=== PATIENT | female | born 1980 | race African-American/Black ===

== ENCOUNTER 2017-08-01 18:25 | Emergency (ER) | payer MEDICARE, MEDICAID ==
[~2017-08-01] VITALS: Ht 167.6 cm; Wt 68.5 kg
[2017-08-01 19:46] LABS: CLARITY URINE CLEAR (CLEAR); COLOR URINE YELLOW (YELLOW); KETONES URINE NEGATIVE (NEGATIVE); LEUKOCYTE ESTERASE URINE 1+ (NEGATIVE); NITRITE URINE NEGATIVE (NEGATIVE); OCCULT BLOOD URINE 2+ (NEGATIVE); PROTEIN URINE NEGATIVE (NEGATIVE); SPECIFIC GRAVITY URINE 1.015 (1.005-1.030)
[2017-08-01 20:53] LABS: CHLORIDE 108 mEq/L (98-107)
[2017-08-01 20:55] LABS: BASOPHILS % 1.1 % (0.0-2.0); EOSINOPHILS % 3.2 % (0.0-5.0); HEMATOCRIT. 35.2 % (36.0-48.0); LYMPHOCYTES % 32.3 % (20.0-50.0); MEAN CORPUSCULAR HEMOGLOBIN 29.4 pg (28.0-32.0); MEAN CORPUSCULAR VOLUME 86.1 fL (81.0-99.0); MEAN PLATELET VOLUME 9.3 fl (7.4-10.4); MONOCYTES % 7.3 % (2.0-8.0); NEUTROPHILS % 56.1 % (40.0-76.0); PLATELET 192 x1000/uL (130-400); RED BLOOD CELL COUNT 4.09 mill/uL (4.2-5.4); RED CELL DISTRIBUTION WIDTH 12.7 % (11.6-14.6)
[2017-08-01 21:15] LABS: B-HCG QUANTITATIVE 7010 mIU/mL (<3)
[2017-08-01 21:40] VITALS: BP 97/55
== END 2017-08-01 22:09 | disposition home or self-care (01) ==
LOC: ER 20:36
DX: O20.0 Threatened abortion (principal); Z3A.09 9 weeks gestation of pregnancy
CPT/HCPCS: 36415; 76801; 80053; 81003; 84702; 85025; 86850; 86900; 99285

== ENCOUNTER 2017-10-12 12:31 | Emergency (ER) | payer MEDICARE, MEDICAID ==
[~2017-10-12] VITALS: Ht 167.6 cm; Wt 64.0 kg
[2017-10-12 13:13] LABS: BASOPHILS % 1.1 % (0.0-2.0); EOSINOPHILS % 1.8 % (0.0-5.0); HEMATOCRIT. 35.8 % (36.0-48.0); HEMOGLOBIN. 12.1 g/dL (12.0-16.0); LYMPHOCYTES % 29.3 % (20.0-50.0); MEAN CORPUSCULAR VOLUME 85.6 fL (81.0-99.0); NEUTROPHILS % 60.8 % (40.0-76.0); PLATELET 233 x1000/uL (130-400); RED BLOOD CELL COUNT 4.18 mill/uL (4.2-5.4); RED CELL DISTRIBUTION WIDTH 13.4 % (11.6-14.6)
[2017-10-12 13:19] LABS: CHLORIDE 109 mEq/L (98-107)
[2017-10-12 13:22] LABS: ETHANOL BLOOD < 10 mg/dL
[2017-10-12 13:39] LABS: HCG SCREEN NEGATIVE
[2017-10-12 14:27] LABS: *AMPHETAMINES SCREEN URINE NEGATIVE (NEGATIVE); *BARBITURATES SCREEN URINE NEGATIVE (NEGATIVE); *BENZODIAZEPINES SCREEN URINE NEGATIVE (NEGATIVE); *COCAINE SCREEN URINE NEGATIVE (NEGATIVE)
[2017-10-12 14:28] LABS: CANNABINOID URINE SCREEN NEGATIVE (NEGATIVE); METHADONE URINE SCREEN NEGATIVE (NEGATIVE); OPIATES URINE SCREEN NEGATIVE (NEGATIVE); PHENCYCLIDINE URINE SCREEN NEGATIVE (NEGATIVE)
[2017-10-12 17:27] VITALS: BP 100/57
== END 2017-10-12 21:23 | disposition home or self-care (01) ==
LOC: ER 14:47
DX: F41.9 Anxiety disorder, unspecified (principal); R42 Dizziness and giddiness; E87.8 Other disorders of electrolyte and fluid balance, not elsewhere classified; E86.0 Dehydration; R94.4 Abnormal results of kidney function studies; R06.4 Hyperventilation; R45.0 Nervousness
CPT/HCPCS: 36415; 80048; 80305; 83036; 84703; 85025; 93005; 99285; G0482

== ENCOUNTER 2017-12-15 10:06 | Emergency (ER) | payer MEDICARE, MEDICAID ==
[~2017-12-15] VITALS: Ht 167.6 cm; Wt 64.0 kg
[2017-12-15 10:16] VITALS: BP 104/57
== END 2017-12-15 14:33 | disposition left against medical advice (07) ==
LOC: ER 14:05
DX: Z53.21 Procedure and treatment not carried out due to patient leaving prior to being seen by health care provider (principal)

== ENCOUNTER 2021-08-22 19:25 | Emergency (ER) | payer MEDICARE, MEDICAID ==
[~2021-08-22] VITALS: Ht 167.6 cm; Wt 72.0 kg
[2021-08-22 19:29] VITALS: BP 107/66
== END 2021-08-23 02:33 | disposition left against medical advice (07) ==
LOC: ER 19:25
DX: Z53.21 Procedure and treatment not carried out due to patient leaving prior to being seen by health care provider (principal)
CPT/HCPCS: 93005

== ENCOUNTER 2023-04-14 10:07 | Emergency (ER) | payer MEDICAID, MEDICARE, OTHER ==
[~2023-04-14] VITALS: Ht 167.6 cm; Wt 68.0 kg
[2023-04-14 10:15] VITALS: BP 120/73; PULSE 70; RESP 20; TEMP 98.3; O2SAT 99
[2023-04-14] MEDS ORDERED: KETOROLAC 30MG/ML VIAL IM ONE (10:45)
== END 2023-04-14 14:57 | disposition left against medical advice (07) ==
LOC: ER 10:36
DX: S00.93XA Contusion of unspecified part of head, initial encounter (principal); W18.39XA Other fall on same level, initial encounter; Y93.89 Activity, other specified; Y92.89 Other specified places as the place of occurrence of the external cause; Y99.8 Other external cause status
CPT/HCPCS: 99281

== ENCOUNTER 2024-11-15 11:26 | Emergency (ER) | payer MEDICAID ==
[~2024-11-15] VITALS: Ht 167.6 cm; Wt 72.0 kg
[2024-11-15 11:35] VITALS: BP 116/76; PULSE 85; RESP 18; TEMP 36.7; O2SAT 100; O2SAT 98
[2024-11-15] MEDS ORDERED: HYDR50TA55 PO (13:44)
== END 2024-11-15 14:09 | disposition home or self-care (01) ==
LOC: ER 11:26
DX: F41.0 Panic disorder [episodic paroxysmal anxiety] (principal); Z79.899 Other long term (current) drug therapy
CPT/HCPCS: 99283